=== PATIENT | female | born 1995 | race Caucasian/White ===

== ENCOUNTER → 2016-11-20 | Outpatient (CLI) | payer OTHER ==
[~2016-11-20] MED LIST: GADAVIST IV PRN
--- NOTE | 2016-11-20 19:42 | DIAGNOSTIC IMAGING REPORT ---
MRI OF THE BRAIN COMBO; MRI OF THE PITUITARY GLAND COMBO CLINICAL HISTORY: Secondary amenorrhea. COMPARISON STUDY: No priors. TECHNIQUE: MRI of the brain was performed utilizing various T1 and T2-weighted sequences in the axial, sagittal, and coronal planes. Contrast-enhanced sequences were acquired following the administration of 6 cc of Gadavist. Comparison is recommended high-resolution imaging of the pituitary gland is performed. Dynamic postcontrast imaging of the pituitary gland is acquired in the coronal plane. FINDINGS: Brain parenchyma: The brain parenchyma is normal in appearance. There is no hemorrhage or mass effect. There is no restricted diffusion to suggest acute ischemia. No enhancing mass lesion is identified on the postcontrast images. Blanca-white matter differentiation is preserved. No extra-axial fluid collection is seen. The cerebellar tonsils are normal in configuration. Ventricles, sulci, and cisterns: Normal in configuration. Pituitary and sella: Unremarkable. No pituitary mass lesion or hypoenhancing nodule is identified. The infundibulum is midline. Intracranial vasculature: Normal flow voids are maintained at the skull base. Orbits: The bony orbits are grossly intact. Orbital contents are normal in appearance. Sinuses and mastoids: Small retention cysts are present within the maxillary antra. The paranasal sinuses are otherwise clear, as are the mastoid air cells. Calvarium: Unremarkable. Cervical cord: Partially visualized cervical spinal cord is normal in morphology and signal intensity. Soft tissues: There are numerous tiny cystic foci seen within the posterior nasopharyngeal soft tissues anterior to the clivus. This is of indeterminant etiology and significance. This is best seen on axial T2-weighted image #5 and the cystic foci measure up to 6 mm. No enhancing lesion is seen at this site. IMPRESSION: 1. No acute intracranial abnormality. 2. Unremarkable MRI of the pituitary gland. 3. There are numerous small simple cystic foci seen within the nasopharyngeal soft tissues anterior to the clivus. 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 No enhancing mass lesion is seen and this is of low suspicion. Precautionary ENT follow-up is recommended. Electronically signed by: David Tidwell M.D. 11/20/2016 7:41 PM Dictated Date/Time: 11/20/2016 7:30 PM
== END | disposition home or self-care (01) ==
LOC: C.MRI 18:10
PROVIDERS: ATTEND Physician Assistant Medical
DX: N91.1 Secondary amenorrhea (principal); R93.0 Abnormal findings on diagnostic imaging of skull and head, not elsewhere classified

== ENCOUNTER → 2017-01-04 | Outpatient (CLI) | payer OTHER ==
[2017-01-04 13:03] LABS: HEMATOCRIT 44.4 % (37-47); MEAN CELL VOLUME 94.9 fL (80-100); MEAN CORPUSCULAR HEMOGLOBIN 32.5 pg (25-34); MEAN CORPUSCULAR HGB CONC 34.2 g/dl (32-36); MEAN PLATELET VOLUME 10.4 fL (7.4-10.4); PLATELET COUNT 281 K/uL (130-400); RED BLOOD COUNT 4.68 M/uL (4.2-5.4); WHITE BLOOD COUNT 4.54 K/uL (4.8-10.8)
[2017-01-04 13:32] LABS: BLOOD UREA NITROGEN 8 mg/dl (7-18); BUN/CREATININE RATIO 11.9 (10-20); CALCIUM 9.4 mg/dl (8.5-10.1); CARBON DIOXIDE 29 mmol/L (21-32); CHLORIDE 105 mmol/L (98-107); GLUCOSE 51 mg/dl (70-99); POTASSIUM 3.6 mmol/L (3.5-5.1); SODIUM 141 mmol/L (136-145); TOTAL IRON BINDING CAPACITY 462 mcg/dl (250-450)
[2017-01-04 13:38] LABS: FERRITIN 21.8 ng/ml (8.0-388.0)
== END | disposition home or self-care (01) ==
LOC: C.LAB1850 10:11
PROVIDERS: ATTEND Nurse Practitioner Adult Health
DX: F41.9 Anxiety disorder, unspecified (principal); R51 Headache; R00.2 Palpitations; Z86.2 Personal history of diseases of the blood and blood-forming organs and certain disorders involving the immune mechanism; Z87.19 Personal history of other diseases of the digestive system

== ENCOUNTER → 2017-01-11 | Outpatient (CLI) | payer OTHER ==
[2017-01-13 17:33] LABS: IGA SERUM 388 mg/dL (81-463); TIS TRANS IGA 3 U/mL (<4)
== END | disposition home or self-care (01) ==
LOC: C.LAB1850 10:21
PROVIDERS: ATTEND Physician Assistant
DX: K90.0 Celiac disease (principal)

== ENCOUNTER → 2017-01-27 | Outpatient (CLI) | payer OTHER ==
--- NOTE | 2017-01-27 12:33 | DIAGNOSTIC IMAGING REPORT ---
GASTRIC EMPTYING HISTORY: Bowel habit change. Nausea. K59.00 [id number] COMPARISON: None. TECHNIQUE: Following the oral administration of 1.0 mCi of technetium 99m sulfur colloid in egg sandwich and 8 ounces of water, static abdominal images are obtained anteriorly and posteriorly at 0 minutes, 1 hour, 2 hour, and 4 hour time intervals. Gastric emptying was calculated utilizing the geometric mean method. FINDINGS: There is approximately 77 % activity remaining at the 1 hour time interval (normal is less than 90%), 45 % remaining at the 2 hour time interval (normal is less than 60%), and 2 % activity remaining at the 4 hour time interval (normal is less than 10%). IMPRESSION: Normal study. No evidence for gastric emptying delay. The above report was generated using voice recognition software. It may contain grammatical, syntax or spelling errors. Electronically signed by: Rg Parikh M.D. 01/27/2017 12:32 PM Dictated Date/Time: 01/27/2017 12:31 PM
== END | disposition home or self-care (01) ==
LOC: C.NUCL 07:39
PROVIDERS: ATTEND Physician Assistant
DX: K59.00 Constipation, unspecified (principal)

== ENCOUNTER → 2017-03-08 | Day surgery (SDC) | payer OTHER ==
[2017-02-22 13:55] VITALS: Ht 172.7 cm; Wt 61.4 kg
[~2017-03-08] VITALS: Ht 172.7 cm; Wt 61.4 kg
[~2017-03-08] MED LIST changes: +BCPILLS PO; +CALC600T9 PO; +DOCU100T7 PO; +FERR1TAB23 PO; -GADAVIST IV PRN; +LIDOCAINE HCL 2% 2 ML VIAL (20MG/ML) ONE; +MIDAZOLAM HCL 1 MG/ML 2ML VIAL ONE; +ONDANSETRON INJ 2 MG/ML 2 ML VIAL ONE; +PROPOFOL IV EMULSION 10 MG/ML 20 ML VIAL IV ONE; +SODIUM CHLORIDE 0.9% 500ML 500 ML IV ONE
--- NOTE | 2017-03-08 15:50 | Endo History and Physical ---
History & Physical Date of Service: Mar 08, 2017. Chief Complaint: Celiac Referring Physician: Maggie Church History of Present Illness 21 yo CF who presents for EGD secondary to Celiac disease. Past Surgical History Hx Cardiac Surgery: No Hx Internal Defibrillator: No Hx Pacemaker: No Hx Abdominal Surgery: No Hx of Implantable Prosthesis: No Hx Post-Op Nausea and Vomiting: No Hx Cancer Surgery: No Hx Thoracic Surgery: No Hx Orthopedic: No Hx Urinary Tract Surgery: No Family History None Social History Smoking Status: Never Smoker Hx Substance Use: No Hx Alcohol Use: Yes (OCCASIONALLLY) Allergies Coded Allergies: Gluten (Verified Allergy, Unknown, CELIAC DISEASE, 03/08/17) NO KNOWN DRUG ALLERGIES (Verified Allergy, Unknown, ., 03/08/17) Current Medications Reported Home Medications Medications Dose Route/Sig Max Daily Dose Days Date Category Stool Softener (Docusate Sodium) 100 Mg Tab 1 Tab PO DAILY 02/22/17 Reported Control Pills (Miscellaneous) Tab 1 Tab PO DAILY AT 6PM 02/22/17 Reported Iron (Ferrous Sulfate) 325 Mg Tab 1 Tab PO DAILY 02/22/17 Reported Calcium + D (Calcium Carbonate-Vitamin D) 1 Tab Tab 1 Tab PO QAM 02/22/17 Reported Vital Signs Weight (Kilograms): 61.36 Height (Feet): 5 Height (Inches): 8 Date Time Temp Pulse Resp B/P (MAP) Pulse Ox O2 Delivery O2 Flow Rate FiO2 03/08/17 15:16 36.4 71 18 93/52 (66) 98 Room Air Physical Exam General Appearance: WD/WN, no apparent distress Respiratory/Chest: Auscultation: breath sounds normal Cardiovascular: Heart Auscultation: RRR Abdomen: Bowel Sounds: normal Inspection & Palpation: soft, non-distended, no tenderness, guarding & rebound Assessment and Plan Assessment: 21 yo CF who presents for EGD secondary to Celiac disease. Plan: Proceed with EGD.
--- NOTE | 2017-03-08 16:19 | Discharge Instructions ---
Endoscopy Patient Instructions Date / Procedure(s) Performed Mar 08, 2017. EGD Allergy Information Coded Allergies: Gluten (Verified Allergy, Unknown, CELIAC DISEASE, 03/08/17) NO KNOWN DRUG ALLERGIES (Verified Allergy, Unknown, ., 03/08/17) Discharge Date / Findings Mar 08, 2017. Gastric antrum biopsies Duodenal biopsies Medication Instructions OK to resume all medications today as prescribed Reported Home Medications Medications Dose Route/Sig Max Daily Dose Days Date Category Stool Softener (Docusate Sodium) 100 Mg Tab 1 Tab PO DAILY 02/22/17 Reported Control Pills (Miscellaneous) Tab 1 Tab PO DAILY AT 6PM 02/22/17 Reported Iron (Ferrous Sulfate) 325 Mg Tab 1 Tab PO DAILY 02/22/17 Reported Calcium + D (Calcium Carbonate-Vitamin D) 1 Tab Tab 1 Tab PO QAM 02/22/17 Reported Provider Instructions Activity Restrictions - No exercising or heavy lifting for 24 hours. - Do not drink alcohol the day of the procedure. - Do not drive a car or operate machinery until the day after the procedure. - Do not make any important decisions or sign important papers in 24 hours after the procedure. Following Day: - Return to full activity which may include returning to work/school. Diet Start your diet with liquids and light foods (jello, soup, juice, toast). Then eat your usual diet if not nauseated. Treatment For Common After Affects For mild abdominal pain, bloating, or excessive gas: - Rest - Eat lightly - Lie on right side Follow-Up Information Follow-up with Maggie Church as scheduled Anesthesia Information What You Should Know You have had a procedure that required some medicine to reduce anxiety and discomfort. This treatment is called moderate sedation. After receiving the treatment, you may be sleepy, but you will be able to breathe on your own. The effects of the treatment may last for several hours. Follow these instructions along with Activity/Diet recommendations noted above: * Do NOT do anything where dizziness or clumsiness would be dangerous. * Rest quietly at home today, then you can be up and about tomorrow. * Have a responsible person stay with you the rest of today. * You may have had an I.V. today. If so, you may take the dressing off later today. Recommendations Call your doctor if: * Trouble breathing * Continuous vomiting for more than 24 hours * Temperature above 101 degrees * Severe abdominal pain or bloating * Pain not relieved by pain medicine ordered * There is increased drainage or redness from any incision * A large amount of rectal bleeding greater than 2-3 tablespoons. (If you had a polyp/s removed or have hemorrhoids, a small amount of blood - from the rectum is to be expected.) * You have any unanswered questions or concerns. IN THE EVENT OF A SERIOUS EMERGENCY, GO TO THE NEAREST EMERGENCY ROOM Your discharge instructions were prepared by provider Jah Mcwilliams. Patient Instructions Signature Page Veronica Beltre Patient (or Guardian) Signature/Date: I have read and understand the instructions given to me by my caregivers. Caregiver/RN/Doctor Signature/Date: The above-named patient and/or guardian has received patient instructions on this date. + Original Patient Signature Page (only) stays with chart. Please make copy for patient.
--- NOTE | 2017-03-08 16:19 | GI REPORT ---
Procedure Date: 03/08/2017 3:26 PM Procedure: Upper GI endoscopy Indications: Celiac disease Medicines: Monitored Anesthesia Care Complications: No immediate complications. Estimated Blood Loss: Estimated blood loss: none. Procedure: Pre-Anesthesia Assessment: - Prior to the procedure, a History and Physical was performed, and patient medications and allergies were reviewed. The patient's tolerance of previous anesthesia was also reviewed. The risks and benefits of the procedure and the sedation options and risks were discussed with the patient. All questions were answered, and informed consent was obtained. Prior Anticoagulants: The patient has taken no previous anticoagulant or antiplatelet agents. ASA Grade Assessment: II - A patient with mild systemic disease. After reviewing the risks and benefits, the patient was deemed in satisfactory condition to undergo the procedure. After obtaining informed consent, the endoscope was passed under direct vision. Throughout the procedure, the patient's blood pressure, pulse, and oxygen saturations were monitored continuously. The scope was introduced through the mouth, and advanced to the second part of duodenum. The upper GI endoscopy was accomplished without difficulty. The patient tolerated the procedure well. Findings: The esophagus was normal. The entire examined stomach was normal. Biopsies were taken with a cold forceps for histology. The examined duodenum was normal. Biopsies were taken with a cold forceps for histology. Impression: - Normal esophagus. - Normal stomach. Biopsied. - Normal examined duodenum. Biopsied. Recommendation: - Resume previous diet. - Continue present medications. - Await pathology results. - Return to primary care physician as previously scheduled. Jah Mcwilliams, DO 03/08/2017 4:18:53 PM This report has been signed electronically. Note Initiated On: 03/08/2017 3:26 PM I attest to the content of the Intraoperative Record and orders documented therein, exceptions below
--- NOTE | 2017-03-08 16:29 | Anesthesiology Progress Note ---
Anesthesia Post Op Note Date & Time Mar 08, 2017 at 16:29 Vital Signs Pain Intensity: 0 Vital Signs Past 12 Hours Date Time Temp Pulse Resp B/P (MAP) Pulse Ox O2 Delivery O2 Flow Rate FiO2 03/08/17 16:15 69 16 85/46 (59) 97 Room Air 03/08/17 15:16 36.4 71 18 93/52 (66) 98 Room Air Notes Mental Status: alert / awake / arousable, participated in evaluation Pt Amnestic to Procedure: Yes Nausea / Vomiting: adequately controlled Pain: adequately controlled Airway Patency, RR, SpO2: stable & adequate BP & HR: stable & adequate Hydration State: stable & adequate Anesthetic Complications: no major complications apparent
[2017-03-08 16:45] VITALS: BP 92/62; PULSE 75; O2SAT 99
== END | disposition home or self-care (01) ==
LOC: C.GI 14:32
PROVIDERS: ATTEND Internal Medicine
DX: K29.50 Unspecified chronic gastritis without bleeding (principal)